=== PATIENT | male | born 1990 | race American Indian/Alaskan Native ===

== ENCOUNTER 2018-05-10 21:03 | Emergency (ER) | payer MEDICAID ==
[~2018-05-10] VITALS: Ht 180.3 cm; Wt 68.2 kg
[~2018-05-10 21:03] MED LIST: CHOL100046 PO; OMEP20TA23 PO
[2018-05-10 21:08] VITALS: BP 133/91
== END 2018-05-10 22:41 | disposition home or self-care (01) ==
LOC: ER 21:04
DX: S60.851A Superficial foreign body of right wrist, initial encounter (principal); Z79.899 Other long term (current) drug therapy; W45.8XXA Other foreign body or object entering through skin, initial encounter; Y93.89 Activity, other specified; Y92.89 Other specified places as the place of occurrence of the external cause; Y99.8 Other external cause status
CPT/HCPCS: 10120; 99284

== ENCOUNTER 2024-10-30 09:10 | Emergency (ER) | payer MEDICAID, OTHER ==
[~2024-10-30] VITALS: Ht 180.3 cm; Wt 104.7 kg
[2024-10-30 09:27] VITALS: TEMP 98.1
[2024-10-30 11:24] VITALS: BP 156/89; PULSE 75; RESP 16; O2SAT 99
== END 2024-10-30 11:00 | disposition home or self-care (01) ==
LOC: ER 09:11
DX: K42.9 Umbilical hernia without obstruction or gangrene (principal); Z79.899 Other long term (current) drug therapy
CPT/HCPCS: 99281